=== PATIENT | male | born 1945 | race Caucasian/White ===

== ENCOUNTER 2018-05-10 18:51 | Inpatient (IN) | payer OTHER, MEDICAID ==
[~2018-05-10] VITALS: Ht 127 cm; Wt 46.7 kg
[2018-05-10 18:51] VITALS: BP_SYST 136
[~2018-05-10 18:51] MED LIST: ACET-2165 PO; ARTT OP; ASCO-339; BACL10TA PO; DOCU-144 PO; FINA5TAB3 PO; METO-442 PO; MOM PO; MULT-1117 PO; NEU100 PO; OXYC10TA56 PO; PRO40 PO; TAMS0.4C96 PO
[2018-05-10] MEDS ORDERED: RESEYE OP (19:28)
[2018-05-10] MEDS ORDERED: ONDANSETRON HCL 4 MG/2 ML VIAL IVP ONE (19:30)
[2018-05-10] MEDS ORDERED: NACL 0.9% 1,000 ML IV ONE ×2 (19:30→21:15)
[2018-05-10] MEDS ORDERED: fentaNYL CITRATE/PF 100 MCG/2 ML AMP IVP ONE (19:30)
[2018-05-10] MEDS ORDERED: GUAI100S14 PO (19:42)
[2018-05-10] MEDS ORDERED: FAMO40TA71 PO (19:42)
[2018-05-10] MEDS ORDERED: LACT10SO7 PO (19:42)
[2018-05-10 19:52] LABS: BILIRUBIN,URINE NEGATIVE (NEGATIVE); BLOOD, URINE 2+ (NEGATIVE); CLARITY/URINE CLOUDY (CLEAR); COLOR,URINE YELLOW (YELLOW); GLUCOSE,URINE NEGATIVE (NEGATIVE); KETONES,URINE 1+ (NEGATIVE); LEUKOCYTE ESTERASE ,URINE 3+ (NEGATIVE); NITRITE, URINE POSITIVE (NEGATIVE); PH,URINE 7.5 (5.0-8.0); PROTEIN URINE 2+ (NEGATIVE)
[2018-05-10 19:55] LABS: HEMATOCRIT 32.7 % (36-54); HEMOGLOBIN 10.9 g/dL (14.0-18.0); MEAN CORPUSCULAR HEMOGLOBIN 31 pg (27-31); MEAN CORPUSCULAR HGB CONC 33 % (32-36); MEAN CORPUSCULAR VOLUME 92 fL (79.0-98.0); PLATELET COUNT (AUTO) 317 K/uL (130-430); RED BLOOD CELL COUNT(AUTO) 3.56 MIL/uL (4.2-6.2); RED CELL DISTRIBUTION WIDTH 13.8 % (9.0-15.0); WHITE BLOOD COUNT (AUTO) 19.7 K/uL (4.8-10.8)
[2018-05-10 20:00] LABS: BACTERIA,URINE MANY /HPF (None Seen); WBC,URINE 50-80 /HPF (0-3)
[2018-05-10 20:01] LABS: MUCUS,URINE 2+ /LPF (None Seen); TRIPLE PHOSPHATE CRYSTAL,UR 0-10 /HPF (None Seen)
[2018-05-10 20:07] LABS: ANION GAP 10 (5-15); CALCIUM 8.5 mg/dL (8.4-11.0); CHLORIDE 98 mmol/L (98-107); GLUCOSE 208 mg/dL (70-99); POTASSIUM 3.6 mmol/L (3.5-5.1); SODIUM SERUM 133 mmol/L (136-145); UREA NITROGEN, BLOOD 30 mg/dL (8-21)
[2018-05-10 20:11] LABS: ALANINE AMINOTRANSFERASE 34 U/L (12-78); ASPARTATE AMINOTRANSFERASE 20 U/L (10-37); LIPASE 95 U/L (73-393); TOTAL BILIRUBIN 0.5 mg/dL (0.0-1.0)
[2018-05-10 20:27] LABS: BAND % (MANUAL) 27 % (0-6); BASOPHILS % (MANUAL) 0 % (0-2); EOSINOPHILS % (MANUAL) 0 % (0-7); LYMPHOCYTES % (MANUAL) 2 % (20-46); MONOCYTES % (MANUAL) 3 % (0-11)
[2018-05-10] MEDS ORDERED: PIPERACILLIN/TAZO 3.375 GM in NS 50 ML IV ONE (21:15)
[2018-05-10] MEDS ORDERED: BISACODYL 10 MG/SUPPOSITORY RC ONE (21:15)
[2018-05-10] MEDS ORDERED: LORazepam 2 MG/ML VIAL (FOR ER USE) IVP ONE (21:45)
[2018-05-10] MEDS ORDERED: DIPHENHYDRAMINE INJ 50 MG/ML VIAL IVP ONE (21:45)
[2018-05-10] MEDS ORDERED: METOCLOPRAMIDE HCL 10 MG/2 ML VIAL IVP ONE (21:45)
[2018-05-10] MEDS ORDERED: PIPERACILLIN/TAZOBACTAM 3.375 GM/VIAL (ZOSYN) IV ONE (21:56)
[2018-05-10] MEDS ORDERED: MINERAL OIL 133 ML ENEMA RC ONE (23:15)
[2018-05-10] MEDS ORDERED: guaiFENesin 200 MG/10 ML UDC PO SCH (23:15)
[2018-05-10] MEDS ORDERED: MILK OF MAGNESIA 30 ML UDC PO PRN (23:15)
[2018-05-10] MEDS ORDERED: ONDANSETRON HCL 4 MG/2 ML VIAL IVP PRN (23:30)
[2018-05-10 23:48] VITALS: BP_SYST 143
[2018-05-11] VITALS (25 sets, daily range): BP systolic 76–147
[2018-05-11] MEDS: ONDANSETRON HCL 4 MG/2 ML VIAL IVP PRN ×2 (00:10→05:00)
[2018-05-11] MEDS: KCL 20 mEq in D5/0.45NS 1000mL 1,000 ML IV SCH ×2 (00:30→08:38)
[2018-05-11] MEDS ORDERED: MEROPENEM 1 GM IVPB PREMIX 50 ML IV SCH ×2 (01:00→09:00)
[2018-05-11] MEDS ORDERED: MEROPENEM 500 MG VIAL IV ONE (01:04)
[2018-05-11 06:43] LABS: BASOPHILS # (AUTO) 0.1 K/uL (0.0-0.2); BASOPHILS % (AUTO) 0.4 % (0.0-2.0); HEMOGLOBIN 8.8 g/dL (14.0-18.0); LYMPHOCYTES # (AUTO) 0.9 K/uL (1.0-5.5); LYMPHOCYTES % (AUTO) 4.8 % (20.5-51.5); MEAN CORPUSCULAR HEMOGLOBIN 30 pg (27-31); MEAN CORPUSCULAR HGB CONC 32 % (32-36); MEAN CORPUSCULAR VOLUME 91 fL (79.0-98.0); MONOCYTES # (AUTO) 0.7 K/uL (0.0-1.0); MONOCYTES % (AUTO) 3.9 % (1.7-9.3); NEUTROPHILS # (AUTO) 16.8 K/uL (1.8-7.7); NEUTROPHILS % (AUTO) 90.9 % (40.0-70.0); PLATELET COUNT (AUTO) 276 K/uL (130-430); RED BLOOD CELL COUNT(AUTO) 2.96 MIL/uL (4.2-6.2); RED CELL DISTRIBUTION WIDTH 13.5 % (9.0-15.0); WHITE BLOOD COUNT (AUTO) 18.5 K/uL (4.8-10.8)
[2018-05-11 06:53] LABS: ANION GAP 10 (5-15); CALCIUM 7.7 mg/dL (8.4-11.0); CHLORIDE 100 mmol/L (98-107); CREATININE 0.95 mg/dL (0.55-1.30); GLUCOSE 172 mg/dL (70-99); POTASSIUM 3.2 mmol/L (3.5-5.1); SODIUM SERUM 134 mmol/L (136-145); UREA NITROGEN, BLOOD 30 mg/dL (8-21)
[2018-05-11] MEDS ORDERED: HYDROmorphone 2 MG/ML VIAL IVP PRN (08:15)
[2018-05-11] MEDS ORDERED: KCL 40 mEq in 100 mL (PREMIX) 100 ML IV ONE (08:15)
[2018-05-11] MEDS: GABAPENTIN 100 MG CAPSULE PO SCH ×3 (09:00→20:49)
[2018-05-11] MEDS: TAMSULOSIN HCL 0.4 MG CAP PO SCH (09:00)
[2018-05-11] MEDS: LUBIPROSTONE 24 MCG CAPSULE PO SCH ×2 (09:00→20:48)
[2018-05-11] MEDS: oxyCODONE HCL 10 MG TAB.ER.12H PO SCH ×3 (09:00→20:49)
[2018-05-11] MEDS: cycloSPORINE 0.05%, 0.4 ML OPHTHALMIC EMULSION DROPERETTE OP SCH ×2 (09:00→20:47)
[2018-05-11] MEDS: DOCUSATE SODIUM 100 MG CAPSULE PO SCH ×2 (09:00→20:49)
[2018-05-11] MEDS: BACLOFEN 10 MG TABLET PO SCH ×2 (09:00→20:49)
[2018-05-11] MEDS: METOPROLOL TARTRATE 50 MG TABLET PO SCH (09:00)
[2018-05-11 09:46] LABS: BASOPHILS # (AUTO) 0.4 K/uL (0.0-0.2); BASOPHILS % (AUTO) 1.6 % (0.0-2.0); EOSINOPHILS % (AUTO) 0.1 % (0.0-4.0); HEMATOCRIT 26.8 % (36-54); HEMOGLOBIN 8.5 g/dL (14.0-18.0); LYMPHOCYTES # (AUTO) 3.6 K/uL (1.0-5.5); LYMPHOCYTES % (AUTO) 13.5 % (20.5-51.5); MEAN CORPUSCULAR HEMOGLOBIN 30 pg (27-31); MEAN CORPUSCULAR HGB CONC 32 % (32-36); MEAN CORPUSCULAR VOLUME 93 fL (79.0-98.0); MONOCYTES # (AUTO) 0.3 K/uL (0.0-1.0); MONOCYTES % (AUTO) 1.3 % (1.7-9.3); NEUTROPHILS # (AUTO) 22.1 K/uL (1.8-7.7); NEUTROPHILS % (AUTO) 83.5 % (40.0-70.0); PLATELET COUNT (AUTO) 302 K/uL (130-430); RED BLOOD CELL COUNT(AUTO) 2.88 MIL/uL (4.2-6.2); RED CELL DISTRIBUTION WIDTH 13.6 % (9.0-15.0); WHITE BLOOD COUNT (AUTO) 26.4 K/uL (4.8-10.8)
[2018-05-11] MEDS ORDERED: MORPHINE 2 MG/ML INJ. SYRINGE IVP PRN (10:00)
[2018-05-11] MEDS ORDERED: ALBUTEROL SULFATE 0.083% 2.5 MG/3 ML VIAL.NEB INH PRN (10:00)
[2018-05-11] MEDS ORDERED: KCL 40mEq in D5/0.45NS 1000 mL 1,000 ML IV SCH (10:00)
[2018-05-11] MEDS ORDERED: IPRATROPIUM BROM 0.5 MG/2.5 ML VIAL.NEB (ATROVENT) INH PRN (10:00)
[2018-05-11] MEDS ORDERED: ETOMIDATE 20 MG/ 10 ML VIAL (AMIDATE) IVP ONE (10:04)
[2018-05-11] MEDS ORDERED: VECURONIUM BROMIDE 10 MG/VIAL (NORCURON) IVP ONE (10:04)
[2018-05-11 10:05] LABS: INR 1.1 (0.80-1.20); PROTHROMBIN TIME 11.2 SECS (9.5-12.5)
[2018-05-11 10:17] LABS: ALANINE AMINOTRANSFERASE 29 U/L (12-78); ALBUMIN 2.3 g/dL (3.4-4.8); ANION GAP 12 (5-15); ASPARTATE AMINOTRANSFERASE 23 U/L (10-37); CALCIUM 7.3 mg/dL (8.4-11.0); CHLORIDE 97 mmol/L (98-107); CREATININE 1.04 mg/dL (0.55-1.30); GLUCOSE 326 mg/dL (70-99); POTASSIUM 3.3 mmol/L (3.5-5.1); SODIUM SERUM 128 mmol/L (136-145); TOTAL BILIRUBIN 0.4 mg/dL (0.0-1.0); UREA NITROGEN, BLOOD 27 mg/dL (8-21)
[2018-05-11] MEDS ORDERED: POTASSIUM CHLORIDE 40 MEQ in NS 250 ML IV ONE (10:45)
[2018-05-11] MEDS ORDERED: COMMUNICATION ORDER XX ONE (10:45)
[2018-05-11] MEDS ORDERED: KCL 20 mEq in NS 1000 mL 1,000 ML IV SCH (11:00)
[2018-05-11] MEDS ORDERED: NS 500 ML IV ONE ×3 (11:15→13:00)
[2018-05-11] MEDS ORDERED: EPINEPHrine JECT 1 MG/10 ML SYR IVP ONE (12:09)
[2018-05-11] MEDS ORDERED: NS 1000 ML IV.SOLN IV ONE (12:09)
[2018-05-11] MEDS: PANTOPRAZOLE SODIUM 40 MG in NS 50 ML IV SCH ×3 (12:12→21:04)
[2018-05-11] MEDS ORDERED: KCL 20 mEq in D5NS 1000 mL 1,000 ML IV SCH (12:45)
[2018-05-11] MEDS ORDERED: NOREPINEPHRINE 4 MG/4 ML VIAL IV ONE ×2 (12:55→23:34)
[2018-05-11] MEDS ORDERED: SODIUM BICARBONATE 8.4% JECT 50 MEQ/50 ML SYRINGE IV ONE (13:00)
[2018-05-11] MEDS ORDERED: VANCOMYCIN HCL 750 MG in NS 250 ML IV SCH (13:00)
[2018-05-11] MEDS: NOREPINEPHRINE BITARTRATE 4 MG in D5W 246 ML IV PRN ×2 (13:01→23:46)
[2018-05-11] MEDS: HYDROCORTISONE SOD SUCC 100 MG/2 ML VIAL IVP SCH ×3 (13:15→21:03)
[2018-05-11] MEDS ORDERED: MEROPENEM 1 GM in NS 100 ML IV SCH (14:00)
[2018-05-11] MEDS: LevALBUTEROL HCL 1.25 MG/0.5 ML *CONC.* VIAL.NEB (XOPENEX CONC.) INH SCH ×2 (14:15→19:16)
[2018-05-11] MEDS: IPRATROPIUM BROM 0.5 MG/2.5 ML VIAL.NEB (ATROVENT) INH SCH ×2 (14:15→19:16)
[2018-05-11] MEDS: LORazepam 2 MG/ML VIAL IVP PRN (15:48)
[2018-05-11 16:28] LABS: HEMOGLOBIN 9.6 g/dL (14.0-18.0)
[2018-05-11] MEDS ORDERED: LEVOFLOXACIN 500 MG/D5W 100 ML IV SCH (17:00)
[2018-05-11] MEDS: PIPERACILLIN/TAZO 2.25G/DEX-IS 50 ML IV SCH ×2 (18:03→23:25)
[2018-05-11] MEDS ORDERED: NACL 0.9% 1,000 ML IV ONE (18:15)
[2018-05-11] MEDS: D5/0.45 NS 1,000 ML IV SCH (18:37)
[2018-05-11] MEDS ORDERED: FUROSEMIDE 20 MG/2 ML VIAL IVP SCH (20:00)
[2018-05-11] MEDS ORDERED: FAMOTIDINE 20 MG TABLET PO SCH (21:00)
[2018-05-11] MEDS ORDERED: ENOXAPARIN SODIUM 30 MG/0.3 ML SYRINGE SUBCUT SCH (21:00)
[2018-05-12] VITALS (19 sets, daily range): BP systolic 65–148
[2018-05-12] MEDS: IPRATROPIUM BROM 0.5 MG/2.5 ML VIAL.NEB (ATROVENT) INH SCH ×2 (01:17→07:54)
[2018-05-12] MEDS: LevALBUTEROL HCL 1.25 MG/0.5 ML *CONC.* VIAL.NEB (XOPENEX CONC.) INH SCH ×2 (01:17→07:55)
[2018-05-12] MEDS ORDERED: FUROSEMIDE 20 MG/2 ML VIAL IVP SCH (02:00)
[2018-05-12] MEDS: PANTOPRAZOLE SODIUM 40 MG in NS 50 ML IV SCH ×2 (02:01→09:47)
[2018-05-12] MEDS: ACETAMINOPHEN 325 MG TABLET PO PRN ×2 (03:26→08:56)
[2018-05-12] MEDS ORDERED: NOREPINEPHRINE 4 MG/4 ML VIAL IV ONE (04:17)
[2018-05-12] MEDS: NOREPINEPHRINE BITARTRATE 4 MG in D5W 246 ML IV PRN (04:22)
[2018-05-12 05:26] LABS: HEMATOCRIT 34.6 % (36-54); HEMOGLOBIN 11.1 g/dL (14.0-18.0); MEAN CORPUSCULAR HEMOGLOBIN 29 pg (27-31); MEAN CORPUSCULAR HGB CONC 32 % (32-36); MEAN CORPUSCULAR VOLUME 91 fL (79.0-98.0); PLATELET COUNT (AUTO) 227 K/uL (130-430); RED BLOOD CELL COUNT(AUTO) 3.82 MIL/uL (4.2-6.2); RED CELL DISTRIBUTION WIDTH 15.9 % (9.0-15.0); WHITE BLOOD COUNT (AUTO) 11.4 K/uL (4.8-10.8)
[2018-05-12] MEDS: PIPERACILLIN/TAZO 2.25G/DEX-IS 50 ML IV SCH ×2 (05:28→12:53)
[2018-05-12] MEDS: HYDROCORTISONE SOD SUCC 100 MG/2 ML VIAL IVP SCH (05:28)
[2018-05-12 05:35] LABS: ALANINE AMINOTRANSFERASE 20 U/L (12-78); ALBUMIN 1.7 g/dL (3.4-4.8); ANION GAP 9 (5-15); ASPARTATE AMINOTRANSFERASE 26 U/L (10-37); CALCIUM 7.3 mg/dL (8.4-11.0); CHLORIDE 103 mmol/L (98-107); CREATININE 1.27 mg/dL (0.55-1.30); GLUCOSE 118 mg/dL (70-99); SODIUM SERUM 131 mmol/L (136-145); UREA NITROGEN, BLOOD 31 mg/dL (8-21)
[2018-05-12 05:55] LABS: TOTAL BILIRUBIN 0.9 mg/dL (0.0-1.0)
[2018-05-12 06:31] LABS: BAND % (MANUAL) 45 % (0-6); BASOPHILS % (MANUAL) 0 % (0-2); EOSINOPHILS % (MANUAL) 0 % (0-7); LYMPHOCYTES % (MANUAL) 5 % (20-46); METAMYELOCYTES % 16 % (0-0); MONOCYTES % (MANUAL) 2 % (0-11)
[2018-05-12] MEDS ORDERED: ADENOSINE 6MG/2ML VIAL ONE ×2 (08:25→08:35)
[2018-05-12] MEDS ORDERED: DIGOXIN 0.5 MG/2 ML AMP ONE (08:32)
[2018-05-12] MEDS ORDERED: DILTIAZEM HCL 25 MG/5 ML VIAL ONE ×2 (08:38→08:45)
[2018-05-12] MEDS ORDERED: DILTIAZEM HCL 125 MG/25 ML VIAL IV ONE (08:48)
[2018-05-12] MEDS: LORazepam 2 MG/ML VIAL IVP PRN (08:59)
[2018-05-12] MEDS: METOPROLOL TARTRATE 50 MG TABLET PO SCH (09:00)
[2018-05-12] MEDS ORDERED: DILTIAZEM HCL 125 MG in D5W 100 ML IV SCH (09:00)
[2018-05-12] MEDS ORDERED: DILTIAZEM HCL 25 MG/5 ML VIAL IVP ONE ×3 (09:00)
[2018-05-12] MEDS ORDERED: DIGOXIN 0.5 MG/2 ML AMP IVP ONE (09:00)
[2018-05-12] MEDS ORDERED: ADENOSINE 6MG/2ML VIAL IVP ONE ×3 (09:00)
[2018-05-12] MEDS ORDERED: NACL 0.9% 1,000 ML IV ONE (09:15)
[2018-05-12] MEDS: GABAPENTIN 100 MG CAPSULE PO SCH (09:46)
[2018-05-12] MEDS: DOCUSATE SODIUM 100 MG CAPSULE PO SCH (09:46)
[2018-05-12] MEDS: BACLOFEN 10 MG TABLET PO SCH (09:46)
[2018-05-12] MEDS: TAMSULOSIN HCL 0.4 MG CAP PO SCH (09:46)
[2018-05-12] MEDS: LUBIPROSTONE 24 MCG CAPSULE PO SCH (09:46)
[2018-05-12] MEDS: oxyCODONE HCL 10 MG TAB.ER.12H PO SCH (10:17)
[2018-05-12] MEDS: cycloSPORINE 0.05%, 0.4 ML OPHTHALMIC EMULSION DROPERETTE OP SCH (10:17)
[2018-05-12] MEDS: D5/0.45 NS 1,000 ML IV SCH (10:47)
[2018-05-12] MEDS ORDERED: NS 500 ML IV ONE (11:30)
[2018-05-12] MEDS ORDERED: NOREPINEPHRINE BITARTRATE 8 MG in NS 242 ML IV PRN (12:00)
[2018-05-12] MEDS ORDERED: ETOMIDATE 20 MG/ 10 ML VIAL (AMIDATE) IVP ONE (12:52)
[2018-05-12] MEDS ORDERED: EPINEPHrine JECT 1 MG/10 ML SYR IVP ONE (13:55)
== END 2018-05-12 13:56 | disposition expired | DRG 871 ==
LOC: SED 18:51 → STU 21:54 → SIC 05-11 09:05
PROVIDERS: ADMIT Family Medicine; ATTEND Family Medicine
PROC: 30233N1 Transfusion of Nonautologous Red Blood Cells into Peripheral Vein, Percutaneous Approach (ICD-10-PCS; principal; 2018-05-11)
PROC: 02HV33Z Insertion of Infusion Device into Superior Vena Cava, Percutaneous Approach (ICD-10-PCS; 2018-05-11)
PROC: B548ZZA Ultrasonography of Superior Vena Cava, Guidance (ICD-10-PCS; 2018-05-11)
PROC: 0BH17EZ Insertion of Endotracheal Airway into Trachea, Via Natural or Artificial Opening (ICD-10-PCS; 2018-05-11)
PROC: 5A12012 Performance of Cardiac Output, Single, Manual (ICD-10-PCS; 2018-05-11)
PROC: 5A1945Z Respiratory Ventilation, 24-96 Consecutive Hours (ICD-10-PCS; 2018-05-11)
DX: A41.9 Sepsis, unspecified organism (principal); J69.0 Pneumonitis due to inhalation of food and vomit; J96.02 Acute respiratory failure with hypercapnia; R65.21 Severe sepsis with septic shock; N39.0 Urinary tract infection, site not specified; N17.9 Acute kidney failure, unspecified; E87.1 Hypo-osmolality and hyponatremia; G82.20 Paraplegia, unspecified; G93.1 Anoxic brain damage, not elsewhere classified; I47.1 Supraventricular tachycardia; K31.1 Adult hypertrophic pyloric stenosis; K92.2 Gastrointestinal hemorrhage, unspecified; I46.9 Cardiac arrest, cause unspecified; E86.0 Dehydration; D63.8 Anemia in other chronic diseases classified elsewhere; M06.9 Rheumatoid arthritis, unspecified; G20 Parkinson's disease; G89.29 Other chronic pain; I12.9 Hypertensive chronic kidney disease with stage 1 through stage 4 chronic kidney disease, or unspecified chronic kidney disease; K21.9 Gastro-esophageal reflux disease without esophagitis; K22.8 Other specified diseases of esophagus; K40.90 Unilateral inguinal hernia, without obstruction or gangrene, not specified as recurrent; K44.9 Diaphragmatic hernia without obstruction or gangrene; K56.41 Fecal impaction; N18.9 Chronic kidney disease, unspecified; N20.0 Calculus of kidney; N31.9 Neuromuscular dysfunction of bladder, unspecified; N40.0 Benign prostatic hyperplasia without lower urinary tract symptoms; Q54.9 Hypospadias, unspecified; Z79.899 Other long term (current) drug therapy; Z74.01 Bed confinement status
CPT/HCPCS: 36415; 36600; 71045; 80048; 80053; 81000-TC; 82803-TC; 82962; 83605; 83690-TC; 84484; 85007; 85018-TC; 85025; 85027; 85610-TC; 85730-TC; 86886; 86900; 86901; 86920; 87040-TC; 87070-TC; 87081; 87086; 87186-TC; 87205-TC; 93005; 93306; 94002; 94003; 94640; 96361; 96365; 96375; 99285; C1751; C9113; J0153; J0171; J1160; J1170; J1650; J1720; J1940; J1956; J2060; J2185; J2405; J2543; J2765; J3010; J3370; J3480; J3490; J7030; J7040; J7050; J7060; J7612; J7613; P9021